=== PATIENT | male | born 1940 | race Caucasian/White ===

== ENCOUNTER 2018-02-25 12:23 | Day surgery (SDC) | payer MEDICARE, OTHER ==
[~2018-02-25] VITALS: Ht 185.4 cm; Wt 85.3 kg
[~2018-02-25 12:23] MED LIST: ALLO300T2 PO; AMLO2.5T45 PO; CLOP75TA16 PO; LEVO125T PO; LIP40 PO; RISE150T PO
[2018-02-25] MEDS ORDERED: DESM0.2T2 MT (13:16)
[2018-02-25] MEDS ORDERED: RIVA20TA MT (13:16)
[2018-02-25] MEDS ORDERED: ALEN70TA46 MT (13:16)
[2018-02-25] MEDS ORDERED: ASPI-1158 MT (13:16)
[2018-02-25] MEDS ORDERED: MIDAZOLAM HCL 2 MG/2 ML VIAL ONE (13:28)
[2018-02-25] MEDS ORDERED: PROPOFOL 200MG/20ML VIAL IV ONE (13:28)
[2018-02-25] MEDS ORDERED: LIDOCAINE HCL/PF 1% 10 MG/ML 5ML VIAL ONE (13:28)
[2018-02-25] MEDS ORDERED: SODIUM CHLORIDE 0.9% 1,000 ML IV ONE (13:48)
[2018-02-25] MEDS ORDERED: ONDANSETRON HCL 4MG/2ML INJ IV PRN (14:00)
== END 2018-02-25 17:00 | disposition home or self-care (01) ==
LOC: OR 12:23
PROVIDERS: ATTEND Specialist
DX: I48.2 Chronic atrial fibrillation (principal); I25.10 Atherosclerotic heart disease of native coronary artery without angina pectoris; I65.29 Occlusion and stenosis of unspecified carotid artery; E78.00 Pure hypercholesterolemia, unspecified; N40.0 Benign prostatic hyperplasia without lower urinary tract symptoms; I10 Essential (primary) hypertension; Z79.899 Other long term (current) drug therapy; Z79.82 Long term (current) use of aspirin
CPT/HCPCS: 92960; 93005; J2250; J3490; J2704

== ENCOUNTER → 2021-08-08 | Outpatient (CLI) | payer MEDICARE, OTHER ==
[~2021-08-08] MED LIST changes: +ALEN70TA79 MT; +ASPI-1406 MT; +CLOP-31 PO; -CLOP75TA16 PO; +DESM0.2T4 MT; +RIVA20TA MT; +VALS320T16 MT
== END | disposition home or self-care (01) ==
LOC: LAB 08:40
PROVIDERS: ATTEND Specialist
DX: R05.9 Cough, unspecified (principal); Z20.822 Contact with and (suspected) exposure to COVID-19
CPT/HCPCS: C9803; U0003; U0005

== ENCOUNTER 2023-09-25 08:11 | Day surgery (SDC) | payer MEDICARE, OTHER ==
[~2023-09-25] VITALS: Ht 185.4 cm; Wt 88.0 kg
[~2023-09-25 08:11] MED LIST changes: +ASPIRIN/SOD BICARB/CITRIC ACID 324MG TAB EFF ONE; +DESM0.2T31 MT; -DESM0.2T4 MT; -RIVA20TA MT
[2023-09-25] MEDS ORDERED: HEPARIN 1000 UNITS/ML 10ML ONE (08:40)
[2023-09-25] MEDS ORDERED: LIDOCAINE HCL 1% 20ML VIAL (Pyxis) INJ ONE (08:41)
[2023-09-25] MEDS ORDERED: IODIXANOL 320MG/ML 100 ML BOTTLE IV ONE (08:41)
[2023-09-25] MEDS: SODIUM CHLORIDE 0.45% 500 ML IV ONE (09:31)
[2023-09-25] MEDS ORDERED: OMEG1CAP28 PO (09:34)
[2023-09-25] MEDS ORDERED: TIOT4MIS8 IH (09:34)
[2023-09-25] MEDS ORDERED: DENO60DI SQ (09:37)
[2023-09-25 09:47] LABS: BASOPHILS % 0.7 % (0.0-2.0); EOSINOPHILS % 2.8 % (0.0-5.0); HEMATOCRIT. 40.1 % (42.0-52.0); HEMOGLOBIN. 13.9 g/dL (14.0-18.0); LYMPHOCYTES % 20.1 % (20.0-50.0); MEAN CORPUSCULAR HEMOGLOBIN 32.9 pg (28.0-32.0); MEAN CORPUSCULAR HGB CONC 34.6 g/dL (31.0-37.0); MEAN CORPUSCULAR VOLUME 95.1 fL (80.0-94.0); MEAN PLATELET VOLUME 7.7 fl (7.4-10.4); MONOCYTES % 10.1 % (2.0-8.0); NEUTROPHILS % 66.3 % (40.0-76.0); PLATELET 225 x1000/uL (130-400); RED BLOOD CELL COUNT 4.22 mill/uL (4.7-6.1); RED CELL DISTRIBUTION WIDTH 13.9 % (11.6-14.6); WHITE BLOOD COUNT 5.8 x1000/uL (4.5-11.0)
[2023-09-25] MEDS ORDERED: FENTANYL CITRATE/PF 50MCG/ML 2ML VIAL ONE (09:48)
[2023-09-25] MEDS ORDERED: MIDAZOLAM HCL 2 MG/2 ML VIAL ONE (09:49)
[2023-09-25 09:52] LABS: CARBON DIOXIDE 29 mEq/L (21-32); CHLORIDE 108 mEq/L (98-107); POTASSIUM 4.3 mEq/L (3.5-5.1); SODIUM 140 mEq/L (136-145)
[2023-09-25 09:58] LABS: GLUCOSE 109 mg/dL (70-105); UREA NITROGEN BLOOD 15 mg/dL (9-23)
[2023-09-25] MEDS ORDERED: ATROPINE SULFATE 1MG/10ML SYR ONE (10:09)
[2023-09-25] MEDS ORDERED: ACETAMINOPHEN 325MG TABLET PO PRN (10:30)
[2023-09-25] MEDS ORDERED: MORPHINE SULFATE 2 MG/ML CPJ (NOT FOR IM USE) IV PRN (10:30)
[2023-09-25] MEDS ORDERED: ONDANSETRON HCL 4MG/2ML INJ IV PRN (10:30)
[2023-09-25] MEDS ORDERED: NALOXONE HCL 0.4MG/ML VIAL IV PRN (11:00)
== END 2023-09-25 15:15 | disposition home or self-care (01) ==
LOC: CCL 08:11
PROVIDERS: ATTEND Specialist
DX: I25.10 Atherosclerotic heart disease of native coronary artery without angina pectoris (principal); I10 Essential (primary) hypertension; I48.91 Unspecified atrial fibrillation; J44.9 Chronic obstructive pulmonary disease, unspecified; E03.9 Hypothyroidism, unspecified; G47.30 Sleep apnea, unspecified; E78.5 Hyperlipidemia, unspecified; Z79.899 Other long term (current) drug therapy; Z98.890 Other specified postprocedural states; Z79.82 Long term (current) use of aspirin; Z87.891 Personal history of nicotine dependence; Z88.1 Allergy status to other antibiotic agents; Z82.49 Family history of ischemic heart disease and other diseases of the circulatory system
CPT/HCPCS: 80048; 85025; 36415; 93454; 93005; Z7610 ×8; C1893; C1725; J3010; Q9967; J0461; J1644 ×2; J3490; J2250; C1769; C1887; 99152; G0500